=== PATIENT | female | born 1975 | race American Indian/Alaskan Native ===

== ENCOUNTER 2018-11-01 22:28 | Inpatient (IN) | payer SELFPAY ==
--- NOTE | 2018-11-02 00:53 | XRay Report ---
PROCEDURE: XR CHEST ROUTINE 2V TECHNIQUE: PA and lateral chest radiographs were obtained. HISTORY: chestpain COMPARISONS: None. FINDINGS: Heart: Normal. Mediastinum/Vessels: Normal. Lungs/Pleural space: Normal. Bony thorax: No acute osseous abnormality. IMPRESSION: Normal examination. This document is electronically signed by Argelia Sharp DO., November 02 2018 12:51:05 AM ET
[2018-11-02 01:16] LABS: Alanine Aminotransferase 8 units/L (7-56); Albumin 4.3 g/dL (3.9-5); BUN/Creatinine Ratio 13; Blood Urea Nitrogen 9 mg/dL (7-17); Calcium 9.1 mg/dL (8.4-10.2); Hemolysis Index 2; Lipase 24 units/L (13-60)
[2018-11-02 02:04] LABS: Basophils # (Auto) 0.1 K/mm3 (0.0-0.1); Basophils % (Auto) 0.8 % (0.0-1.8); Eosinophils # (Auto) 0.2 K/mm3 (0.0-0.4); Eosinophils % (Auto) 2.9 % (0.0-4.3); Lymphocytes # (Auto) 2.2 K/mm3 (1.2-5.4); Lymphocytes % (Auto) 25.8 % (13.4-35.0); Mean Corpuscular HGB Conc 29 % (30-34); Monocytes # (Auto) 0.7 K/mm3 (0.0-0.8); Monocytes % (Auto) 8.5 % (0.0-7.3); Red Blood Count 4.02 M/mm3 (3.65-5.03)
[2018-11-02 02:08] LABS: Hematocrit 23.8 % (30.3-42.9); Hemoglobin 6.9 gm/dl (10.1-14.3); Mean Corpuscular Hemoglobin 17 pg (28-32); Mean Corpuscular Volume 59 fl (79-97); Platelet Count 197 K/mm3 (140-440)
[2018-11-02] MEDS ORDERED: ZOFRAN IV ONE (02:54)
[2018-11-02] MEDS ORDERED: ZOFRAN ONE (02:54)
[2018-11-02] MEDS ORDERED: NACL 0.9% 500 ML 500 ML IV ONE (03:06)
[2018-11-02] MEDS ORDERED: SUBLIMAZE IV ONE (03:06)
--- NOTE | 2018-11-02 03:11 | Emergency Department Report ---
HPI - General Chief Complaint: Chest Pain Time Seen by Provider: 11/02/18 02:54 - HPI HPI: Room 6 The patient is a 43-year-old female presenting with a chief complaint of chest pain headache and dizziness. The patient states for one week she's had a hea dache and intermittent left-sided chest pain described as stabbing in nature. Patient is to nausea and vomiting as well as dizziness, shortness of breath and dyspnea on exertion. Patient denies hematemesis, bright red blood per rectum or melena. The patient states she has heavy menstrual cycles and her last cycle lasted from 10/15/2018-10/22/2018. The patient states during this menses she went through a total of 45 tampons and 32 pads. The patient currently gives her pain a score of 7-8/10 Location: [See above] Duration: [See above] Quality: Pain Severity:7-8/10 Modifying factors: [see above] Context: [see above] Mode of transportation: [not driving] ED Past Medical Hx - Past Medical History Hx Hypertension: Yes Hx GERD: Yes Hx Headaches / Migraines: Yes Hx Asthma: Yes Additional medical history: Gastritis. Sickle Cell Trait - Surgical History Past Surgical History?: Yes Additional Surgical History: Ovarian cyst - Family History Family history: no significant - Social History Smoking Status: Current Every Day Smoker Substance Use Type: None (denies illicit drug use), Alcohol (occasional) ED Review of Systems ROS: Stated complaint: CHEST PAIN HEADACHE/VOMITING/SOB/ABD PAIN Other details as noted in HPI Constitutional: no symptoms reported Eyes: denies: eye pain ENT: denies: throat pain Respiratory: shortness of breath, SOB with exertion Cardiovascular: chest pain Endocrine: no symptoms reported Gastrointestinal: nausea, vomiting. denies: abdominal pain, hematemesis, melena, hematochezia Genitourinary: abnormal menses Musculoskeletal: denies: back pain Neurological: headache Physical Exam - Physical Exam Vital Signs: Vital Signs 11/02/18 11/02/18 00:03 02:36 Temperature 97.6 F 98.1 F Pulse Rate 87 77 Respiratory 16 20 Rate Blood Pressure 149/72 Blood Pressure 160/78 [Left] O2 Sat by Pulse 99 100 Oximetry Physical Exam: GENERAL: The patient is well-developed well-nourished female lying on stretcher not appear to be in acute distress. [] HEENT: Normocephalic. Atraumatic. Extraocular motions are intact. Patient has moist mucous membranes. NECK: Supple. Trachea midline CHEST/LUNGS: Clear to auscultation. There is no respiratory distress noted. HEART/CARDIOVASCULAR: Regular. There is no tachycardia. There is no gallop rub or murmur. ABDOMEN: Abdomen is soft, nontender. Patient has normal bowel sounds. There is no abdominal distention. SKIN: There is no rash. There is no edema. There is no diaphoresis. NEURO: The patient is awake, alert, and oriented. The patient is cooperative. The patient has normal speech MUSCULOSKELETAL: There is no evidence of acute injury. ED Course Vital Signs 11/02/18 11/02/18 00:03 02:36 Temperature 97.6 F 98.1 F Pulse Rate 87 77 Respiratory 16 20 Rate Blood Pressure 149/72 Blood Pressure 160/78 [Left] O2 Sat by Pulse 99 100 Oximetry ED Medical Decision Making - Lab Data Result diagrams: 11/02/18 00:29 11/02/18 00:29 - EKG Data -: EKG Interpreted by Me EKG shows normal: sinus rhythm Rate: normal - EKG Data When compared to previous EKG there are: previous EKG unavailable Interpretation: nonspecific ST-T wave baljinder (T-wave inversions in leads V3, V4, V5, V6) - Radiology Data Radiology results: report reviewed (chest x-ray), image reviewed (chest x-ray) interpreted by me: Chest x-ray-no focal infiltrates, no pneumothorax Findings [facility] [address] [place] [address] XRay Report Signed Patient: JAMAICA PARRISH MR#: [id number] : 1975 Acct:[id number] Age/Sex: 43 / F ADM Date: 11/01/18 Loc: ED Attending Dr: Ordering Physician: TERRI WALSH MD Date of Service: 11/02/18 Procedure(s): XR chest routine 2V Accession Number(s): [id number] cc: ED MD NICO Fluoro Time In Minutes: PROCEDURE: XR CHEST ROUTINE 2V TECHNIQUE: PA and lateral chest radiographs were obtained. HISTORY: chestpain COMPARISONS: None. FINDINGS: Heart: Normal. Mediastinum/Vessels: Normal. Lungs/Pleural space: Normal. Bony thorax: No acute osseous abnormality. IMPRESSION: Normal examination. This document is electronically signed by Argelia Sharp DO., November 02 2018 12:51:05 AM ET Transcribed By: [facility] Dictated By: ARGELIA SHARP MD Electronically Authenticated By: ARGELIA SHARP MD Signed Date/Time: 11/02/1852 DD/ TD/TT: 11/02/1830 - Differential Diagnosis symptomatic anemia, ACS, pericarditis Critical care attestation.: If time is entered above; I have spent that time in minutes in the direct care of this critically ill patient, excluding procedure time. ED Disposition Clinical Impression: Symptomatic anemia, Chest pain, Menorrhagia Disposition: -09 OP ADMIT IP TO THIS HOSP Is pt being admited?: Yes Does the pt Need Aspirin: Yes Condition: Fair Instructions: Chest Pain (ED) Referrals: PRIMARY CARE, [Primary Care Provider] - 3-5 Days Time of Disposition: 03:12 (hospitalist paged (Dr. Sindi Thacker))
[2018-11-02] MEDS ORDERED: ASPIRIN PO ONE (03:13)
[2018-11-02] MEDS ORDERED: TYLENOL PO PRN (04:09)
[2018-11-02] MEDS ORDERED: ZOFRAN IV PRN (04:09)
[2018-11-02] MEDS ORDERED: SODIUM CHLORIDE FLUSH SYRINGE 10 ML IV PRN (04:09)
--- NOTE | 2018-11-02 05:13 | History and Physical Report ---
History of Present Illness Date of examination: 11/02/18 History of present illness: 43-year-old woman with a history of asthma, GERD, migraine, hypertension, stroke, gastritis, anemia comes to the emergency room complaining of generalized weakness and left-sided chest pain which is stabbing, intermittent lasting for 4 seconds, intensity 3/10, and identify exacerbating factor. She has heavy menstrual cycle to the lasting for 8 days. She has a history of iron infusion, has not had any in a long time Review of systems Constitutional: no weight loss, chills, fever Ears, eyes, nose, mouth and throat: no nasal congestion, no nasal discharge, no sinus pressure, no vision change, no red eye. Neck: No neck pain or rigidity. Cardiovascular: no palpitations, +chest pain Respiratory: no cough, shortness of breath Gastrointestinal: no hematochezia, abdominal pain Genitourinary : no frequency , no hematuria Musculoskeletal: no joint swelling or muscle ache Integumentary: no rash, no pruritis Neurological: no parathesias, no focal weakness Endocrine: no cold or heat intolerance, no polyuria or polydipsia Hematologic/Lymphatic: no easy bruising, no easy bleeding, no gland swelling Allergic/Immunologic: no urticaria, no angioedema. PAST MEDICAL HISTORY:asthma, GERD, migraine, hypertension, stroke, gastritis, anemia PAST SURGICAL HISTORY: Cyst removed from the ovary SOCIAL HISTORY: Denies alcohol, drugs, +tobacco FAMILY HISTORY: Hypertension Medications and Allergies Allergies Allergy/AdvReac Type Severity Reaction Status Date / Time No Known Allergies Allergy Verified 11/02/18 02:59 Active Meds: Active Medications Acetaminophen (Tylenol) 650 mg PO Q4H PRN PRN Reason: Pain MILD(1-3)/Fever >100.5/PATEL Ondansetron HCl (Zofran) 4 mg IV Q8H PRN PRN Reason: Nausea And Vomiting Sodium Chloride (Sodium Chloride Flush Syringe 10 Ml) 10 ml IV BID JUAN CARLOS Sodium Chloride (Sodium Chloride Flush Syringe 10 Ml) 10 ml IV PRN PRN PRN Reason: LINE FLUSH Exam - Physical Exam Narrative exam: General Apperance: The patient lying in bed, breathing comfortable HEENT: Normocephalic, atraumatic. Pupils equally round and reactive to light, EOMI, no sclericterus or JVD or thyromegaly or nodule. , no carotid bruit, muc ous membranes moist, no exudate or erythema Heart: S1-S2, regular is rhythm Lungs: Clear to auscultation bilaterally, breathing comfortable Abdomen: Positive bowel sounds, soft, nontender, nondistended, no organomegaly Extremities: No edema cyanosis clubbing Skin: no rash, nodule, warm and dry Neuro: cranial nerves 2-12 intact, speech is fluent, motor/sensory intact - Constitutional Vitals: Temp Pulse Resp BP Pulse Ox 98.1 F 77 20 160/78 100 11/02/18 02:36 11/02/18 02:36 11/02/18 03:45 11/02/18 02:36 11/02/18 02:36 Results - Labs CBC & Chem 7: 11/02/18 00:29 11/02/18 00:29 Labs: Abnormal lab results 11/02/18 11/02/18 Range/Units 00:29 00:29 Hgb 6.9 L (10.1-14.3) gm/dl Hct 23.8 L (30.3-42.9) % MCV 59 L (79-97) fl MCH 17 L (28-32) pg MCHC 29 L (30-34) % RDW 22.0 H (13.2-15.2) % [place] % (Auto) 8.5 H (0.0-7.3) % Potassium 3.3 L (3.6-5.0) mmol/L - Imaging and Cardiology EKG: image reviewed Chest x-ray: image reviewed Assessment and Plan Assessment Symptomatic anemia due to menorrhagia Chest pain most likely secondary to #1 asthma GERD migraine hypertension gastritis Plan Admit to medicine check iron levels, transfuse blood, check cardiac enzymes DVT prophylaxis, replete potassium
[2018-11-02] MEDS ORDERED: K-DUR PO ONE (06:37)
[2018-11-02 06:54] LABS: Creatine Kinase MB 2.3 ng/mL (0.0-4.0)
[2018-11-02] MEDS ORDERED: BENADRYL IM PRN (08:09)
--- NOTE | 2018-11-02 11:31 | Event Note ---
Date: 11/02/18 Patient was seen and evaluated as to this morning, patient was admitted earlier this morning for the management of symptomatic iron deficiency anemia likely due to her menometrorrhagia. Patient had history of iron transfusion before. Patient will be transfused 1 unit of blood. Hematology is consulted for possible iron transfusion. Continue management as outlined on H&P.
[2018-11-02] MEDS ORDERED: NACL 0.9% 500 ML 500 ML ONE (11:33)
[2018-11-02] MEDS: SODIUM CHLORIDE FLUSH SYRINGE 10 ML IV SCH ×2 (11:58→22:00)
[2018-11-02 17:53] LABS: Hematocrit 26.2 % (30.3-42.9); Hemoglobin 7.6 gm/dl (10.1-14.3)
[2018-11-02 18:06] LABS: Creatine Kinase MB 1.1 ng/mL (0.0-4.0)
[2018-11-02] MEDS ORDERED: NORVASC ONE (20:20)
[2018-11-03] MEDS ORDERED: NORCO 5/325 PO PRN (00:02)
[2018-11-03 05:30] LABS: Basophils # (Auto) 0.1 K/mm3 (0.0-0.1); Basophils % (Auto) 1.5 % (0.0-1.8); Eosinophils # (Auto) 0.3 K/mm3 (0.0-0.4); Lymphocytes # (Auto) 2.8 K/mm3 (1.2-5.4); Lymphocytes % (Auto) 39.9 % (13.4-35.0); Mean Corpuscular HGB Conc 29 % (30-34); Monocytes # (Auto) 0.5 K/mm3 (0.0-0.8); Monocytes % (Auto) 7.6 % (0.0-7.3)
[2018-11-03 05:44] LABS: Hematocrit 25.2 % (30.3-42.9); Hemoglobin 7.3 gm/dl (10.1-14.3); Mean Corpuscular Hemoglobin 18 pg (28-32); Mean Corpuscular Volume 63 fl (79-97); Red Cell Distribution Width 23.7 % (13.2-15.2)
[2018-11-03 06:47] LABS: Platelet Count 140 K/mm3 (140-440)
[2018-11-03] MEDS ORDERED: FERRLECIT 125 MG in NACL 0.9% 100 ML IV ONE (08:00)
[2018-11-03] MEDS ORDERED: NACL 0.9% 500 ML 500 ML IV ONE ×2 (08:00→12:30)
[2018-11-03] MEDS: SODIUM CHLORIDE FLUSH SYRINGE 10 ML IV SCH ×2 (09:20→21:47)
--- NOTE | 2018-11-03 09:31 | Discharge Summary ---
Providers - Providers Date of Admission: 11/02/18 04:09 Date of discharge: 11/04/18 Attending physician: VANESA RYAN MD 11/02/18 07:21 Consult to Physician [CONS] Routine Comment: Consulting Provider: BRENTON MARIE Physician Instructions: Reason For Exam: iron deficiency anemia Primary care physician: LEON KINNEY Hospitalization Reason for admission: symptomatic anemia, migraine, HTN Condition: Stable Hospital course: 43-year-old woman with a history of asthma, GERD, migraine, hypertension, stroke, gastritis, anemia comes to the emergency room complaining of generalized weakness and left-sided chest pain which is stabbing, intermittent lasting for 4 seconds, intensity 3/10, and identify exacerbating factor. She has heavy menstrual cycle to the lasting for 8 days. She has a history of iron infusion, has not had any in a long time. Hemoglobin was 6.9 in the emergency department, patient was transfused with unit of blood and her posttransfusion hemoglobin was 7.3, symptoms resolved. Hematology consulted and gave her iron infusion. Patient was given one more unit of blood and h/h 9.1. 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 Patient is hemodynamically stable. We'll arrange outpatient PCP. Patient moved from [place]. Patient's questions and concerns were addressed as a bedside. Patient was complaining migraine headache, N/V at the time of discharge and discharged this morning. Headache, N/V subsided. Patient's BP was high and given a script for BP meds. Iron tablet, PPI and migraine medications were given. Disposition: DC-30 STILL A PATIENT Time spent for discharge: 32 minutes - Discharge Diagnoses (1) Chest pain Status: Acute Comment: due to anemia. (2) Menorrhagia Status: Acute (3) Symptomatic anemia Status: Acute (4) Hypertension Status: Acute (5) Chronic GERD Status: Acute Core Measure Documentation - Palliative Care Palliative Care/ Comfort Measures: Not Applicable - Core Measures Any of the following diagnoses?: none Exam - Physical Exam Narrative exam: Not in cardiopulmonary distress. The patient is obese. Vital signs as documented. Head exam is unremarkable. No scleral icterus . Neck is without jugular venous distension, thyromegaly, or carotid bruits. Lungs are clear to auscultation. Cardiac exam reveals regular rate and Rhythm. First and second heart sounds n ormal. No murmurs, rubs or gallops. Abdominal exam reveals normal bowel sounds, no masses, no organomegaly and no aortic enlargement. Extremities are nonedematous and both femoral and pedal pulses are normal. INSTRUCTOR APPAREL MANUFACTURE: Alert and oriented 3. No focal weakness. - Constitutional Vitals: Temp Pulse Resp BP Pulse Ox 98.1 F 59 L 20 150/80 99 11/03/18 08:16 11/03/18 08:16 11/03/18 08:16 11/03/18 08:16 11/03/18 08:16 Plan Activity: no restrictions Weight Bearing Status: Full Weight Bearing Diet: regular Follow up with: PRIMARY CAREMD [Referring] - 3-5 Days LEON KINNEY MD [Primary Care Provider] - 7 Days Prescriptions: Butalb/Acetamin/Caff 50-325-40 [Fioricet] 1 tab PO Q4H PRN #20 tablet PRN Reason: Headache hydroCHLOROthiazide [HCTZ] 25 mg PO QDAY #30 tablet Ferrous Sulfate [Iron 325 MG] 325 mg PO BID #60 tablet amLODIPine [Norvasc] 10 mg PO DAILY #30 tablet Pantoprazole [Protonix TAB] 20 mg PO QAM #30 tablet.
[2018-11-03] MEDS ORDERED: NORVASC PO SCH (10:00)
--- NOTE | 2018-11-03 16:13 | Event Note ---
Date: 11/02/18 [id number]
[2018-11-03] MEDS ORDERED: MOTRIN PO ONE ×2 (16:20→17:00)
[2018-11-03] MEDS ORDERED: NORVASC PO NR (17:00)
--- NOTE | 2018-11-03 19:07 | Hem/Onc Progress Note ---
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 Microcytic anemia. 2. Heavy cycles. 3. Fatigue, chest pain. 4. Motor symptoms are likely secondary to iron deficiency. Blood transfusion was given. I discussed with the patient regarding IV iron. I discussed with the patient regarding oral iron. I will follow the patient during inpatient stay. JOINT MACHINE OPERATOR followup suggested. 5. History of asthma. 6. History of gastroesophageal reflux disease. 7. History of migraine. 8. History of hypertension. 9. History of gastritis. 10. I will follow the patient during inpatient stay and then in the clinic setting. d/w reg diet - oral and IV iron - OP follow up - Patient Problems (1) Symptomatic anemia Status: Acute Subjective Date of service: 11/03/18 Principal diagnosis: SAY Interval history: s/p PRBC and IV iron Objective - Constitutional Vitals: Last Vital Signs Temp 98.2 F 11/03/18 16:32 Pulse 60 11/03/18 16:32 Resp 20 11/03/18 16:49 BP 168/79 11/03/18 16:32 Pulse Ox 99 11/03/18 15:02 Pain Intensity (0-10): denies any pain General appearance: no acute distress Performance status: 2- selfcare, ambulatory - EENT Eyes: EOM intact ENT: clear oral mucosa Lymph node exam: negative cervical - Neck Neck: normal ROM - Respiratory Respiratory effort: Positive: normal Respiratory: bilateral: CTA - Cardiovascular Heart Sounds: Present: S1 & S2 Extremities: No edema - Gastrointestinal General gastrointestinal: Present: soft, non-tender Rectal Exam: deferred - Genitourinary Female genitourinary: Present: deferred - Integumentary Integumentary: warm - Musculoskeletal Musculoskeletal: strength equal bilaterally - Neurologic Neurologic: moves all extremities - Labs Lab Results: Laboratory Results - last 24 hr 11/02/18 11/03/18 03:35 04:35 WBC 6.9 RBC 4.00 Hgb 7.3 L Hct 25.2 L MCV 63 L MCH 18 L MCHC 29 L RDW 23.7 H Plt Count 140 Lymph % (Auto) 39.9 H [place] % (Auto) 7.6 H Eos % (Auto) 4.0 Baso % (Auto) 1.5 Lymph # 2.8 [place] # 0.5 Eos # 0.3 Baso # 0.1 Seg Neutrophils % 47.0 Seg Neutrophils # 3.2 Blood Type O POSITIVE Antibody Screen Negative Crossmatch See Detail Medications & Allergies - Medications Allergies/Adverse Reactions: Allergies No Known Allergies Allergy (Verified 11/02/18 02:59) Home Medications: Home Medications Medication Instructions Recorded Confirmed Last Taken Type Ferrous Sulfate [Iron 325 MG] 325 mg PO BID #60 tablet 11/03/18 Unknown Rx RX: Butalb/Acetamin/Caff 50-325-40 1 tab PO Q4H PRN #20 tablet 11/04/18 Unknown Rx [Fioricet] RX: Pantoprazole [Protonix TAB] 20 mg PO QAM #30 tablet.dr 11/04/18 Unknown Rx RX: amLODIPine [Norvasc] 10 mg PO DAILY #30 tablet 11/04/18 Unknown Rx RX: hydroCHLOROthiazide [HCTZ] 25 mg PO QDAY #30 tablet 11/04/18 Unknown Rx Active Medications: Generic Name Dose Route Start Last Admin Trade Name Freq PRN Reason Stop Dose Admin Acetaminophen 650 mg 11/02/18 04:09 11/02/18 21:31 Tylenol PO 650 mg Q4H PRN Administration Pain MILD(1-3)/Fever >100.5/PATEL Acetaminophen/Hydrocodone Bitart 1 each 11/03/18 00:02 11/03/18 05:34 [place] 5/325 PO 1 each Q4H PRN Administration Headache Amlodipine Besylate 5 mg 11/03/18 10:00 11/03/18 09:19 Norvasc PO 5 mg QDAY JUAN CARLOS Administration Diphenhydramine HCl 25 mg 11/02/18 08:09 Benadryl IM Q6H PRN Agitation Ondansetron HCl 4 mg 11/02/18 04:09 Zofran IV Q8H PRN Nausea And Vomiting Sodium Chloride 10 ml 11/02/18 10:00 11/03/18 09:20 Sodium Chloride Flush Syringe 10 Ml IV 10 ml BID JUAN CARLOS Administration Sodium Chloride 10 ml 11/02/18 04:09 Sodium Chloride Flush Syringe 10 Ml IV PRN PRN LINE FLUSH
[2018-11-03 19:11] LABS: Hematocrit 29.4 % (30.3-42.9); Hemoglobin 9.1 gm/dl (10.1-14.3)
[2018-11-03] MEDS: FIORICET PO PRN (21:46)
--- NOTE | 2018-11-03 23:55 | Consultation ---
ATTENDING PHYSICIAN: Jose C Valentin MD REASON FOR CONSULTATION: Microcytic anemia, iron deficiency. HISTORY OF PRESENT ILLNESS: I saw the patient, a 43-year-old female in the medical floor. The patient has history of asthma, GERD, migraine, hypertension, stroke, gastritis, and anemia. The patient came to the hospital because of generalized weakness and left-sided chest pain. She has been having heavy cycles for the last few days. In the past, she had iron infusion. During this admission, hemoglobin was found to be low, MCV was low. I have been asked to evaluate the patient. At this time, no headache, no visual disturbances, no ear discharge. History of chest pain is present, history of weakness is present. No abdominal pain, no vomiting, no diarrhea, no dysuria. History of heavy cycles is present. No seizure or syncope, no loss of consciousness. PAST MEDICAL HISTORY: Includes as above. PAST SURGICAL HISTORY: Includes ovarian cyst surgery. SOCIAL HISTORY: No history of tobacco or alcohol usage. FAMILY HISTORY: Hypertension. ALLERGIES: None. PRESENT MEDICATIONS: Includes Zofran. PHYSICAL EXAMINATION: VITAL SIGNS: Temperature 98, pulse 64, respirations 12, BP 170/76. HEENT: Pallor present. No icterus. NECK: No neck lymph nodes. HEART: S1, S2. LUNGS: Vesicular breathing. ABDOMEN: Soft. EXTREMITIES: No calf tenderness. NEUROLOGIC: Alert, awake, oriented. LABORATORY DATA: White cell 8.4, hemoglobin 6.9, MCV 59, platelet 197, potassium 3.3, creatinine 0.7. Serum iron 12, ferritin 3.6. RADIOLOGY: Chest x-ray was done. ASSESSMENT AND PLAN: 1. Microcytic anemia. 2. Heavy cycles. 3. Fatigue, chest pain. 4. Motor symptoms are likely secondary to iron deficiency. Blood transfusion was given. I discussed with the patient regarding IV iron. I discussed with the patient regarding oral iron. I will follow the patient during inpatient stay. 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 5. History of asthma. 6. History of gastroesophageal reflux disease. 7. History of migraine. 8. History of hypertension. 9. History of gastritis. 10. I will follow the patient during inpatient stay and then in the clinic setting. JOB# [id number] NM/NTS
[2018-11-04] MEDS ORDERED: HCTZ PO SCH ×2 (07:25→10:00)
[2018-11-04 08:06] VITALS: BP 149/79
[2018-11-04] MEDS: SODIUM CHLORIDE FLUSH SYRINGE 10 ML IV SCH (09:28)
[2018-11-04] MEDS: FIORICET PO PRN (09:32)
[2018-11-04] MEDS ORDERED: NORVASC PO SCH (10:00)
[2018-11-04] MEDS ORDERED: NORVASC PO ONE ×2 (16:18)
== END 2018-11-04 12:38 | disposition home or self-care (01) | DRG 761 ==
LOC: ED 22:28 → 4A 11-02 04:09
PROVIDERS: ADMIT Internal Medicine; ATTEND Internal Medicine
PROC: 30233N1 Transfusion of Nonautologous Red Blood Cells into Peripheral Vein, Percutaneous Approach (ICD-10-PCS; principal; 2018-11-02)
DX: N92.0 Excessive and frequent menstruation with regular cycle (principal); D64.89 Other specified anemias; K21.9 Gastro-esophageal reflux disease without esophagitis; G43.909 Migraine, unspecified, not intractable, without status migrainosus; J45.909 Unspecified asthma, uncomplicated; F17.200 Nicotine dependence, unspecified, uncomplicated; Z82.49 Family history of ischemic heart disease and other diseases of the circulatory system; Z86.73 Personal history of transient ischemic attack (TIA), and cerebral infarction without residual deficits; K29.70 Gastritis, unspecified, without bleeding
CPT/HCPCS: 36415; 71046; 80053; 82550; 82553; 82728; 83540; 83690; 84484; 84703; 85014; 85018; 85025; 86850; 86900; 86901; 86920; 93005; 93010; 99406; G0378; J2405; J2916; J3010; J7040; P9016

== ENCOUNTER 2019-07-26 22:46 | Emergency (ER) | payer SELFPAY ==
[2019-07-27] MEDS ORDERED: METOCLOPRAMIDE 10 MG/2 ML INJ IV ONE (03:24)
[2019-07-27] MEDS ORDERED: SODIUM CHLORIDE 0.9% 1000 ML 1,000 ML IV ONE (03:24)
[2019-07-27] MEDS ORDERED: diphenhydrAMINE 50 MG/ML VIAL IV ONE (03:24)
[2019-07-27] MEDS ORDERED: KETOROLAC 30 MG/1 ML INJ IV ONE (03:24)
--- NOTE | 2019-07-27 04:01 | Emergency Department Report ---
ED Headache HPI - General Chief Complaint: Chest Pain Stated Complaint: MIGRAINE/CP/VOMITING Time Seen by Provider: 07/27/19 03:02 - History of Present Illness Initial Comments: pt is a 44-year-old female presents emergency room with complaints of a migraine for the last 6 weeks. She states that her migraine is located on the right frontal side. She states that she has a migraine daily. She has associated nausea and vomiting. Denies any vision changes, numbness, weakness, gait disturbance, speech disturbance. She states that she has a chronic history of migraines and has seen a neurologist in the past. she states this feels typical of her previous migraines. She states that she has tried several different medications in the past but does not remember the names of them. She states she has not seen a doctor in this last 6 weeks while having these migraines. She states that she has been taking Excedrin Migraine with some relief. She denies any diarrhea or fever. She states she has a past medical history of sickle cell trait, hypertension, GERD. She denies any allergies medications. Last menstrual cycle 07/07/19. Allergies/Adverse Reactions: Allergies No Known Allergies Allergy (Verified 11/02/18 02:59) Home Medications: Ambulatory Orders Ferrous Sulfate [Iron 325 MG] 325 mg PO BID #60 tablet 11/03/18 Butalb/Acetamin/Caff 50-325-40 [Fioricet 50-325-40] 1 tab PO Q4H PRN #20 tablet 11/04/18 Pantoprazole [Protonix TAB] 20 mg PO QAM #30 tablet. 11/04/18 amLODIPine 10 mg PO DAILY #30 tablet 11/04/18 hydroCHLOROthiazide [HCTZ] 25 mg PO QDAY #30 tablet 11/04/18 SUMAtriptan SUCCINATE [Imitrex] 25 mg PO Q2HR PRN #12 tablet 07/27/19 ED Review of Systems ROS: Stated complaint: MIGRAINE/CP/VOMITING Other details as noted in HPI Comment: All other systems reviewed and negative ED Past Medical Hx - Past Medical History Previous Medical History?: Yes Hx Hypertension: Yes Hx GERD: Yes Hx Headaches / Migraines: Yes Hx Asthma: Yes Additional medical history: Gastritis. Sickle Cell Trait - Surgical History Past Surgical History?: Yes Additional Surgical History: Ovarian cyst - Social History Smoking Status: Current Every Day Smoker Substance Use Type: None - Medications Home Medications: Home Medications Medication Instructions Recorded Confirmed Last Taken Type Ferrous Sulfate [Iron 325 MG] 325 mg PO BID #60 tablet 11/03/18 Unknown Rx Butalb/Acetamin/Caff 50-325-40 1 tab PO Q4H PRN #20 tablet 11/04/18 Unknown Rx [Fioricet 50-325-40] Pantoprazole [Protonix TAB] 20 mg PO QAM #30 tablet. 11/04/18 Unknown Rx amLODIPine 10 mg PO DAILY #30 tablet 11/04/18 Unknown Rx hydroCHLOROthiazide [HCTZ] 25 mg PO QDAY #30 tablet 11/04/18 Unknown Rx SUMAtriptan SUCCINATE [Imitrex] 25 mg PO Q2HR PRN #12 tablet 07/27/19 Unknown Rx ED Physical Exam - General Limitations: No Limitations General appearance: alert, in no apparent distress - Head Head exam: Present: atraumatic, normocephalic - Eye Eye exam: Present: normal appearance, PERRL, EOMI - ENT ENT exam: Present: mucous membranes moist - Respiratory Respiratory exam: Present: normal lung sounds bilaterally. Absent: respiratory distress, wheezes, rales, rhonchi, stridor, chest wall tenderness, accessory muscle use, decreased breath sounds, prolonged expiratory - Cardiovascular Cardiovascular Exam: Present: regular rate, normal rhythm, normal heart sounds. Absent: systolic murmur, rubs, gallop ED Course Vital Signs 07/26/19 07/27/19 07/27/19 22:56 04:06 05:40 Temperature 98.5 F Pulse Rate 86 70 Respiratory 20 16 18 Rate Blood Pressure 147/94 Blood Pressure 148/70 [Right] O2 Sat by Pulse 96 98 Oximetry ED Medical Decision Making - Medical Decision Making pt is a 44-year-old female presents emergency room with complaints of a migraine for the last 6 weeks. She states that her migraine is located on the right frontal side. She states that she has a migraine daily. She has associated nausea and vomiting. Denies any vision changes, numbness, weakness, gait disturbance, speech disturbance. She states that she has a chronic history of migraines and has seen a neurologist in the past. she states this feels typical of her previous migraines. She states that she has tried several different medications in the past but does not remember the names of them. She states she has not seen a doctor in this last 6 weeks while having these migraines. She states that she has been taking Excedrin Migraine with some relief. She denies any diarrhea or fever. She states she has a past medical history of sickle cell trait, hypertension, GERD. She denies any allergies medications. Last menstrual cycle 07/07/19. VSS. no neuro deficits on exam. Patient given 1 L normal saline, Reglan, Benadryl, Toradol. Patient states that her headache has improved after medications. Patient given prescription for Imitrex. advised pt to please take medication as prescribed as needed. Increase your water intake over the next several days. Please follow-up with a neurologist in the next 2-3 days for further evaluation and management. Return to the emergency room for any new or worsening symptoms. - Differential Diagnosis migraine, tension PATEL, cluster PATEL, sinusitis, pseudotumor cerebri Critical care attestation.: If time is entered above; I have spent that time in minutes in the direct care of this critically ill patient, excluding procedure time. ED Disposition Clinical Impression: Migraine headache Qualifiers: Migraine type: unspecified Status migrainosus presence: without status migrainosus Intractability: not intractable Qualified Code(s): G43.909 - Migraine, unspecified, not intractable, without status migrainosus Disposition: TO HOME OR SELFCARE Is pt being admited?: No Does the pt Need Aspirin: No Condition: Stable Instructions: Migraine Headache (ED) Additional Instructions: please take medication as prescribed as needed. Increase your water intake over the next several days. Please follow-up with a neurologist in the next 2-3 days for further evaluation and management. Return to the emergency room for any new or worsening symptoms. Prescriptions: SUMAtriptan SUCCINATE [Imitrex] 25 mg PO Q2HR PRN #12 tablet PRN Reason: headache Referrals: APPLE BROWN MD [Staff Physician] - 2-3 Days ELAN ABRAHAM MD [Referring] - 2-3 Days MAURIZIO PARRY MD [Staff Physician] - 2-3 Days Time of Disposition: 05:06 Print Language: EMIRATI
[2019-07-27 05:42] VITALS: BP 148/70
== END 2019-07-27 05:40 | disposition home or self-care (01) ==
LOC: ED 22:46
DX: G43.909 Migraine, unspecified, not intractable, without status migrainosus (principal); R11.2 Nausea with vomiting, unspecified; I10 Essential (primary) hypertension; K21.9 Gastro-esophageal reflux disease without esophagitis; J45.909 Unspecified asthma, uncomplicated; F17.200 Nicotine dependence, unspecified, uncomplicated
CPT/HCPCS: 93005; 93010; 96361; 96374; 96375; 99283; J1200; J1885; J2765; J7030

== ENCOUNTER 2019-10-19 12:02 | Emergency (ER) | payer SELFPAY ==
[2019-10-19 12:50] LABS: Mean Corpuscular HGB Conc 29 % (30-34); Platelet Count 190 K/mm3 (140-440)
[2019-10-19 12:55] LABS: Hemoglobin 9.3 gm/dl (10.1-14.3); Mean Corpuscular Volume 67 fl (79-97); Red Cell Distribution Width 22.6 % (13.2-15.2)
[2019-10-19 13:35] LABS: Alanine Aminotransferase 11 units/L (7-56); Albumin 3.9 g/dL (3.9-5); BUN/Creatinine Ratio 10; Blood Urea Nitrogen 7 mg/dL (7-17); Calcium 9.1 mg/dL (8.4-10.2); Hemolysis Index 0
--- NOTE | 2019-10-19 15:49 | XRay Report ---
CHEST 2 VIEWS INDICATION: COUGH. COMPARISON: 03/13/2019. FINDINGS: Support devices: None. Heart: Within normal limits. Lungs/Pleura: No acute air space or interstitial disease. No significant pleural effusion. IMPRESSION: No acute findings. Signer Name: Uday Stanley MD Signed: 10/19/2019 3:45 PM Workstation Name: [id number]
[2019-10-19 17:20] VITALS: BP 135/105
--- NOTE | 2019-10-19 17:21 | Emergency Department Report ---
ED General Adult HPI - General Chief complaint: Nausea/Vomiting/Diarrhea Stated complaint: COUGHING Time Seen by Provider: 10/19/19 15:01 Source: patient Mode of arrival: Ambulatory Limitations: No Limitations - History of Present Illness Initial comments: 44-year-old obese Afro-[place] female states emerge department complaining of having some issues with hypertension and also needing some medication refills states she has had a couple episodes of nausea with 1 day of vomiting blood but denies any fever, hemoptysis, hematemesis, palpitations, presyncope or syncope. States the thumb is nauseated bouts occurred after coughing spells Radiation: non-radiation Severity scale (0 -10): 0 Improves with: none Worsens with: none Associated Symptoms: nausea/vomiting, other (She reports no diarrhea). denies: cough, diaphoresis, fever/chills, loss of appetite, malaise, rash, syncope, weakness - Related Data Previous Rx's Medication Instructions Recorded Last Taken Type Ferrous Sulfate [Iron 325 MG] 325 mg PO BID #60 tablet 11/03/18 Unknown Rx Butalb/Acetamin/Caff 50-325-40 1 tab PO Q4H PRN #20 tablet 11/04/18 Unknown Rx [Fioricet 50-325-40] Pantoprazole [Protonix TAB] 20 mg PO QAM #30 tablet.dr 11/04/18 Unknown Rx SUMAtriptan SUCCINATE [Imitrex] 25 mg PO Q2HR PRN #12 tablet 07/27/19 Unknown Rx Ondansetron [Zofran Odt] 4 mg PO Q8HR #10 tab.rapdis 10/19/19 Unknown Rx amLODIPine 10 mg PO DAILY #30 tablet 10/19/19 Unknown Rx hydroCHLOROthiazide [HCTZ] 25 mg PO QDAY #30 tablet 10/19/19 Unknown Rx Allergies Allergy/AdvReac Type Severity Reaction Status Date / Time No Known Allergies Allergy Verified 11/02/18 02:59 ED Review of Systems ROS: Stated complaint: COUGHING Other details as noted in HPI Comment: All other systems reviewed and negative ED Past Medical Hx - Past Medical History Hx Hypertension: Yes Hx GERD: Yes Hx Headaches / Migraines: Yes Hx Asthma: Yes Additional medical history: Gastritis. Sickle Cell Trait - Surgical History Additional Surgical History: Ovarian cyst - Social History Smoking Status: Current Every Day Smoker Substance Use Type: Alcohol - Medications Home Medications: Home Medications Medication Instructions Recorded Confirmed Last Taken Type Ferrous Sulfate [Iron 325 MG] 325 mg PO BID #60 tablet 11/03/18 Unknown Rx Butalb/Acetamin/Caff 50-325-40 1 tab PO Q4H PRN #20 tablet 11/04/18 Unknown Rx [Fioricet 50-325-40] Pantoprazole [Protonix TAB] 20 mg PO QAM #30 tablet. 11/04/18 Unknown Rx SUMAtriptan SUCCINATE [Imitrex] 25 mg PO Q2HR PRN #12 tablet 07/27/19 Unknown Rx Ondansetron [Zofran Odt] 4 mg PO Q8HR #10 tab.rapdis 10/19/19 Unknown Rx amLODIPine 10 mg PO DAILY #30 tablet 10/19/19 Unknown Rx hydroCHLOROthiazide [HCTZ] 25 mg PO QDAY #30 tablet 10/19/19 Unknown Rx ED Physical Exam - General Limitations: No Limitations General appearance: alert, in no apparent distress - Head Head exam: Present: atraumatic, normocephalic - Eye Eye exam: Present: normal appearance, PERRL, EOMI Pupils: Present: normal accommodation - ENT ENT exam: Present: normal exam, mucous membranes moist - Neck Neck exam: Present: normal inspection - Respiratory Respiratory exam: Present: normal lung sounds bilaterally. Absent: respiratory distress - Cardiovascular Cardiovascular Exam: Present: regular rate, normal rhythm. Absent: systolic murmur, diastolic murmur, rubs, gallop - GI/Abdominal GI/Abdominal exam: Present: soft, normal bowel sounds - Extremities Exam Extremities exam: Present: normal inspection - Back Exam Back exam: Present: normal inspection - Neurological Exam Neurological exam: Present: alert, oriented X3 - Psychiatric Psychiatric exam: Present: normal affect, normal mood - Skin Skin exam: Present: warm, dry, intact, normal color. Absent: rash ED Course Vital Signs 10/19/19 10/19/19 12:08 17:19 Temperature 98.0 F Pulse Rate 69 91 H Respiratory 14 15 Rate Blood Pressure 188/110 135/105 [Right] O2 Sat by Pulse 98 100 Oximetry ED Medical Decision Making - Lab Data Result diagrams: 10/19/19 12:35 10/19/19 12:35 - Radiology Data Radiology results: report reviewed Print Report Referring Physician:REMY ANDERSENPatient Name:Loretta LOPEZPatient ID:[id number] of :[id number]:FemaleAccession:[id number] Date:8301-12-05Vaibxj Status:Finalized Findings [facility] [address] [place] [address] XRay Report Signed Patient: Loretta LOPEZ MR#: [id number] : 1975 Acct:[id number] Age/Sex: 44 / F ADM Date: 10/19/19 Loc: ED Attending Dr: Ordering Physician: EVONNE CLAYTON Date of Service: 10/19/19 Procedure(s): XR chest routine 2V Accession Number(s): [id number] cc: EVONNE CLAYTON Fluoro Time In Minutes: CHEST 2 VIEWS INDICATION: COUGH. COMPARISON: 03/13/2019. FINDINGS: Support devices: None. Heart: Within normal limits. Lungs/Pleura: No acute air space or interstitial disease. No significant pleural effusion. IMPRESSION: No acute findings. Signer Name: Uday Stanley MD Signed: 10/19/2019 3:45 PM Workstation Name: [id number] Transcribed By: ES Dictated By: Uday Stanley MD Electronically Authenticated By: Uday Stanley MD Signed Date/Time: 10/19/19 154 DD/ 1540 TD/TT: - Medical Decision Making This patient presents with acute cough, with no significant cause discovered. Differential diagnosis includes viral syndrome, bronchitis, medication reaction. Presentation not consistent with acute bacterial pneumonia, influenza, asthma, transient airway hyperresponsiveness. Presentation not consistent with chronic causes of cough (including GERD, asthma, postnasal discharge, medication side effect, CHF, lung cancer or mass). Plan: Normal CXR, supportive care, reassess Critical care attestation.: If time is entered above; I have spent that time in minutes in the direct care of this critically ill patient, excluding procedure time. ED Disposition Clinical Impression: Hypertension, Chest pain, Nausea & vomiting Disposition: - TO HOME OR SELFCARE Is pt being admited?: No Does the pt Need Aspirin: No Condition: Stable Instructions: Chest Pain (ED), Costochondritis (ED), Hypertension (ED) Prescriptions: amLODIPine 10 mg PO DAILY #30 tablet hydroCHLOROthiazide [HCTZ] 25 mg PO QDAY #30 tablet Ondansetron [Zofran Odt] 4 mg PO Q8HR #10 tab.[email or web address] Referrals: [facility] [Provider Group] - 3-5 Days Forms: Work/School Release Form(ED)
== END 2019-10-19 18:21 | disposition home or self-care (01) ==
LOC: ED 12:02
DX: I10 Essential (primary) hypertension (principal); R07.89 Other chest pain; R11.2 Nausea with vomiting, unspecified; K21.9 Gastro-esophageal reflux disease without esophagitis; J45.909 Unspecified asthma, uncomplicated; F17.200 Nicotine dependence, unspecified, uncomplicated; Z79.899 Other long term (current) drug therapy
CPT/HCPCS: 36415; 71046; 80053; 85027